=== PATIENT | male | born 1975 | race Hispanic/Latino ===

== ENCOUNTER 2017-09-02 17:04 | Emergency (ER) | payer BC, OTHER ==
[2017-09-02] MEDS ORDERED: Ondansetron ODT 4 MG TAB ONE (17:55)
--- NOTE | 2017-09-02 18:17 | CT ---
CT BRAIN WITHOUT CONTRAST 09/02/17 HISTORY: Injury. COMPARISON: None available. FINDINGS: No acute territorial infarct or hemorrhage. No midline shift or mass effect. Ventricular size and ext ra-axial CSF spaces are normal. There is a large soft tissue contusion and hematoma above the right o rbit and along the forehead. There is extensive mucosal sinus disease of the maxillary sinuses. Multiple missing teeth. Tonsillith s are present. IMPRESSION: Large right supraorbital soft tissue contusion and hematoma. No traumatic intracranial sequela. POS: [facility]
--- NOTE | 2017-09-02 18:24 | CT ---
CT CERVICAL SPINE WITHOUT CONTRAST 09/02/17 HISTORY: Injury. COMPARISON: None. FINDINGS: No acute fracture or malalignment of the cervical spine. The occipital condyles are intact. C1-2 and atlanto-occipital alignment is normal. Odontoid process is normal. There is a posterior disc osteophyte complex at C6-7 narrowing the spinal canal to approximately 7 mm . No listhesis. The mastoids are clear. Thyroid is unremarkable. Lung apices are clear. Remainder of th e paraspinal soft tissues are unremarkable. IMPRESSION: No acute fracture or malalignment of the cervical spine. POS: [facility]
== END 2017-09-02 18:10 | disposition home or self-care (01) ==
LOC: SCSER 17:04
DX: S06.0X0A Concussion without loss of consciousness, initial encounter (principal); S01.511A Laceration without foreign body of lip, initial encounter; S00.83XA Contusion of other part of head, initial encounter; W22.8XXA Striking against or struck by other objects, initial encounter
CPT/HCPCS: 70450; 72125; Q0162